=== PATIENT | female | born 1955 | race Caucasian/White ===

== ENCOUNTER 2021-09-28 08:29 | Outpatient (CLI) | payer BC, SELFPAY ==
[2021-09-28 12:27] LABS: Cholesterol* 239 mg/dL (90-199)
[2021-09-28 12:28] LABS: HDL Cholesterol* 38 mg/dL (>=50); LDL Cholesterol Calculated 158 mg/dL (<100); Triglycerides* 213 mg/dL (40-149)
== END 2021-09-28 08:30 | disposition home or self-care (01) ==
PROVIDERS: PCP Family Medicine; Visit Provider Nurse Practitioner Family
DX: E78.5 Hyperlipidemia, unspecified (principal); R79.89 Other specified abnormal findings of blood chemistry
CPT/HCPCS: 80061; 82728

== ENCOUNTER 2022-01-08 08:56 | Outpatient (CLI) | payer BC, SELFPAY ==
--- NOTE | 2022-01-08 09:15 | CRLHL7_ITS ---
For Patients: As a result of the Cures Act, medical imaging exams and procedure reports are released immediately into your electronic medical record. You may view this report before your referring provider. If you have questions, please contact your health care provider. BILATERAL SCREENING MAMMOGRAM WITH COMPUTER-AIDED DETECTION AND TOMOSYNTHESIS TECHNIQUE: CC and MLO views were obtained. These mammographic images have been obtained using full-field digital technique. These mammographic images were interpreted with the benefit of computer-aided detection. Breast Tomosynthesis was used in this interpretation. COMPARISON FILM: 01/05/21, 12/14/19, 12/07/18. FINDINGS: There are scattered areas of fibroglandular density IMPRESSION: There is no radiographic evidence for malignancy. ASSESSMENT: BI-RADS Category 1: Negative RECOMMENDATION: Routine screening mammogram in 1 year. A lay language report of this examination will be provided to the patient. Francis Le M.D. Diagnostic Radiologist [email or web address] COLE/tamar / be/Dictated by: Francis Le MD @ 01/08/2022 10:07:00 AM (Electronically Signed)
== END 2022-01-08 08:57 | disposition home or self-care (01) ==
LOC: MAMMO 08:57
PROVIDERS: PCP Family Medicine; Visit Provider Family Medicine
DX: Z12.31 Encounter for screening mammogram for malignant neoplasm of breast (principal)
CPT/HCPCS: 77063; 77067

== ENCOUNTER 2022-04-17 09:21 | Outpatient (CLI) | payer BC, SELFPAY ==
[2022-04-17 09:54] LABS: Albumin* 4.4 g/dL (3.3-5.0); Chloride* 105 mmol/L (96-114)
[2022-04-17 09:55] LABS: Potassium* 5.4 mmol/L (3.6-5.1); Sodium* 140 mmol/L (135-149)
[2022-04-17 09:57] LABS: Alanine Aminotransferase* 24 U/L (4-35); Alkaline Phosphatase* 127 U/L (40-150); Aspartate Amino Transferase* 29 U/L (12-35); Bilirubin Total* 0.4 mg/dL (0.1-1.5); Blood Urea Nitrogen* 16 mg/dL (7-30); Carbon Dioxide* 31 mmol/L (20-32); Cholesterol* 205 mg/dL (90-199); Creatinine* 0.6 mg/dL (0.5-1.5); Estimated Glomerular Filt Rate 100 ml/min; Glucose* 95 mg/dL (60-115); Total Protein* 7.3 g/dL (6.0-8.3)
[2022-04-17 09:58] LABS: Calcium* 10.2 mg/dL (8.4-10.6); HDL Cholesterol* 47 mg/dL (>=50); LDL Cholesterol Calculated 120 mg/dL (<100); Triglycerides* 191 mg/dL (40-149)
[2022-04-17 10:01] LABS: Iron* 81 ug/dL (37-170)
[2022-04-17 10:11] LABS: Percent Iron Saturation 24 % (20-50); Total Iron Binding Capacity 330 ug/dL (265-497)
== END 2022-04-17 09:22 | disposition home or self-care (01) ==
PROVIDERS: PCP Family Medicine; Visit Provider Family Medicine
DX: R79.89 Other specified abnormal findings of blood chemistry (principal); K74.3 Primary biliary cirrhosis; E78.5 Hyperlipidemia, unspecified
CPT/HCPCS: 80053; 80061; 82728; 83540; 83550

== ENCOUNTER 2023-02-12 11:06 | Outpatient (CLI) | payer BC, SELFPAY ==
--- NOTE | 2023-02-12 11:30 | CRLHL7_ITS ---
For Patients: As a result of the Cures Act, medical imaging exams and procedure reports are released immediately into your electronic medical record. You may view this report before your referring provider. If you have questions, please contact your health care provider. BILATERAL SCREENING MAMMOGRAM WITH COMPUTER-AIDED DETECTION AND TOMOSYNTHESIS TECHNIQUE: CC and MLO views were obtained. These mammographic images have been obtained using full-field digital technique. These mammographic images were interpreted with the benefit of computer-aided detection. Breast Tomosynthesis was used in this interpretation. COMPARISON FILM: 01/08/22, 01/05/21, 12/14/19. FINDINGS: There are scattered areas of fibroglandular density IMPRESSION: There is no radiographic evidence for malignancy. ASSESSMENT: BI-RADS Category 2: Benign RECOMMENDATION: Routine screening mammogram in 1 year. A lay language report of this examination will be provided to the patient. Francis Le M.D. Diagnostic Radiologist [email or web address] COLE/rock Transcribed: 6:45 p.mSun wilkerson/Dictated by: Francis Le MD @ 02/12/2023 12:21:00 PM (Electronically Signed)
== END 2023-02-12 11:07 | disposition home or self-care (01) ==
LOC: MAMMO 11:07
PROVIDERS: PCP Family Medicine; Visit Provider Family Medicine
DX: Z12.31 Encounter for screening mammogram for malignant neoplasm of breast (principal)
CPT/HCPCS: 77063; 77067

== ENCOUNTER 2023-08-14 15:18 | Outpatient (CLI) | payer BC, SELFPAY | END 2023-08-14 15:19 | disposition home or self-care (01) | PROVIDERS: PCP Family Medicine; Visit Provider Family Medicine | DX: E78.5 Hyperlipidemia, unspecified (principal); K74.3 Primary biliary cirrhosis; R53.83 Other fatigue; G43.009 Migraine without aura, not intractable, without status migrainosus | CPT/HCPCS: 80053; 80061; 82306; 82607; 84443 ==

== ENCOUNTER 2023-08-28 13:26 | Outpatient (CLI) | payer BC, SELFPAY ==
--- OUTSIDE RECORDS SUMMARY | 2023-08-28 13:28 | XMS_ITS | Referral Summary ---
Author Organization [facility] Address [address] [place] [address] Care Team Providers Care Critical Care Nurse Name Role Phone Elsewhere, Pcp Primary Care Provider Unavailabl e Source Comments Patient records contain information from all sites at [facility]. For routine questions regarding patient records, call [phone] during business hours, M-F 8:00 AM - 5:00 PM Central Time. Record requests for emergency care only can be directed to [phone] at any time.[facility] Encounters Date Type Department Care Team Description 08/13/2023 Refill Division of Gastroenterology in [place], [place] [address] [place] [phone] Rah Lucero M.D. Med Refill from Last 3 Months Allergies No known active allergies Medications Medication Sig Dispensed Refills Start Date End Date Status docosahexanoic acid/epa (FISH OIL ORAL) Take 1 capsule by mouth daily. 11/24/2013 Active ferrous sulfate 325 mg (65 mg iron) tablet Take 1 tablet by mouth daily. 12/02/2011 Active SUMAtriptan (IMITREX) 100 mg tablet Take 0.5-1 tablets by mouth as needed. 12/02/2011 Active tamoxifen (NOLVADEX) 20 mg tablet Take 1 tablet by mouth daily. 05/14/2016 Active ascorbic acid, vitamin C, (VITAMIN C) 500 mg tablet Take 1 tablet by mouth daily. 12/02/2011 Active cholecalciferol (VITAMIN D3) 10 mcg (400 Unit) tablet Take 1 tablet by mouth daily. 04/21/2012 Active ursodiol (ACTIGALL) 500 mg tablet Take 1 tablet by mouth 2 (two) times a day with meals. 07/31/2016 Active esomeprazole (NexIUM) [address] capsule 03/16/2019 Active KRILL OIL ORAL Take by mouth daily. Active cetirizine (ZyrTEC) 10 mg tablet Take 10 mg by mouth daily. Active Bacillus coagulans (Digestive Advantage Prob Gummy) 250 million cell tablet,chewable Chew daily. Active acyclovir (ZOVIRAX) 400 mg tablet Take 1 tablet (400 mg total) by mouth 5 (five) times a day for 7 days. 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 No 06/25/2022 Within the last year, have y ou been humiliated or emotionally abused in other ways by your partner or ex-partner? No Within the last year, have y ou been kicked, hit, slapped, or otherwise physically hurt by your partner or ex-partner? No 06/25/2022 Within the last year, have y ou been raped or forced to have any kind of sexual activity by your partner or ex-partner? No 06/25/2022 Social Connection and Isolat ion Panel [NHANES] Answer Date Recorded In a typical week, how many times do you talk on the phone with family, friends, or neighbors? More than three times a week 06/25/2022 How often do you get togethe r with friends or relatives? Once a week 06/25/2022 How often do you attend chur ch or rastafari services? More than 4 times per year 06/25/2022 Do you belong to any clubs o r organizations such as hinduism groups, unions, fraternal or athletic groups, or school groups? Yes 06/25/2022 How often do you attend meet ings of the clubs or organizations you belong to? More than 4 times per year 06/25/2022 Are you , , di vorced, , never , or living with a partner? 06/25/2022 AUDIT-C Answer Date Recorded Q1: How often do you have a drink containing alc ohol? Never 06/25/2022 Average Number of Drinks Not on file 023 Frequency of Binge Drinking Not on file 06/08 Overall Financial Resource Strain (CARDIA) Answe r Date Recorded How hard is it for you to pa y for the very basics like food, housing, medical care, and heating? Not hard at all 06/25/2022 [facility] - Occupational Stress Questionnaire Answer Date Recorded Do you feel stress - tense, restless, nervous, or anxious, or unable to sleep at night because your mind is troubled all the time - these days? Not at all 06/25/2022 Exercise Vital Sign Answer Date Recorde d On average, how many days pe r week do you engage in moderate to strenuous exercise (like a brisk walk)? 4 days 06/25/2022 On average, how many minutes do you engage in exercise at this level? 30 min 06/25/2022 Hunger Vital Sign Answer Date Recorded Within the past 12 months, y ou worried that your food would run out before you got the money to buy more. Never true 06/26/19 23 Within the past 12 months, t he food you bought just didn't last and you didn't have money to get more. Never true 06/25/2022 PRAPARE - Transportation Answer Date Re corded In the past 12 months, has l ack of transportation kept you from medical appointments or from getting medications? No 06/08 In the past 12 months, has l ack of transportation kept you from meetings, work, or from getting things needed for daily living? No 06/25/2022 Housing Stability Vital Sign Answer Elver e Recorded In the last 12 months, was t here a time when you were not able to pay the mortgage or rent on time? No 06/25/2022 In the last 12 months, how many places have you lived? 1 06/25/2022 In the last 12 months, was t here a time when you did not have a steady place to sleep or slept in a snf (including now)? No 06/25/2022 Nutrition Answer Date Recorded Nutrition: EVOO Fat Source No 06/25 On average, how many serving s of fruits and vegetables do you eat per day (serving size is equal to 1 cup or approximately the size of a tennis ball)? 2-3 06/25/2022 Dental Answer Date Recorded Dental: Regular Dentist Yes 06/26/19 Employment Answer Date Recorded Employment status Employed and actively working without restrictions 06/25/2022 Education Answer Date Recorded What is the highest level of school you have completed or the highest degree you have received? Associate degree: occupational, technical, or vocational program 05/09/2019 Sex and Gender Information Value Date Recorded Sex Assigned at Female 06/25/2022 9:31 AM CDT Gender Identity Female 11/26/2017 10:47 AM CDT Sexual Orientation Straight 11/26/2017 10 :47 AM CDT Last Filed Vital Signs Vital Sign Reading Time Taken Comments Blood Pressure 126/78 06/26/2022 10:58 AM CDT Pulse 88 06/26/2022 10:58 AM CDT Temperature 36.7 ??C (98.1 ??F) 09/09/2021 1:56 PM CD T Respiratory Rate 16 01/06/2012 5:39 PM CDT Oxygen Saturation 98% 09/09/2021 1:56 PM CDT Inhaled Oxygen Concentration - - Weight 83 kg (182 lb 15.7 oz) 06/26/2022 10:58 A M CDT Height 159.5 cm (5' 2.8) 06/26/2022 10:58 AM CD T Body Mass Index 32.63 06/26/2022 10:58 AM CDT Plan of Treatment Not on file Medical Devices Implanted Type Area Quality Control Microbiology Supervisor Device Identifier Shelf Expiration Date Model / Serial / Lot Conversions - Default Historical Implant Device Implanted:06/04 (Quantity not on file) Knee Implant Right: Knee Description:Body Location - Knee R. Device Status Text - Knee Imp. Knee Implant- 9 Implanted:10/09 (Quantity not on file) Knee Implant Knee Description:Left knee replac ement Procedures Procedure Name Priority Date/Time Associated Diagnosis Comments US ABDOMEN COMPLETE RAD - Routine (most inpatients and all outpatients) 06/26/2022 9:07 AM CDT Cirrhosis Biliary Primary (HCC) GLUCOSE, FASTING, S/P Routine 06/26/2022 8:25 AM CDT Cirrhosis Biliary Primary (HCC) BI BREAST SCREENING BILATERAL WITH TOMOSYNTHESIS RAD - Routine (most inpatients and all outpatients) 11/26/2017 9:34 AM CDT Cancer Breast Ductal In Situ Left COLONOSCOPY Routine 03/11/2012 1:01 PM FISHER QUAHOG from Last 3 Months or Most Recently Relevant to Health Maintenance Results * US Abdomen Complete (06/26/2022 9:07 AM CDT) Anatomical Region Laterality Modality Abdomen, Ultrasound RST LOS, Ultrasound ARZ LOS, Ultrasound FLA LOS N/A Ultrasound 06/26/2022 9:36 AM CDT Impressions 06/26/2022 9:41 AM CDT Liver appears normal by ultrasound. No focal hepatic observations. LI-RADS 1A. Narrative 06/26/2022 9:41 AM CDT EXAM: US ABDOMEN COMPLETE COMPARISON: Outside ultrasound 03/17/2019, ultrasound 06/26/2015, outside CT abdomen/pelvis 03/05/2017. FINDINGS: Liver: Normal. ??No focal hepatic observations. LI-RADS 1A. Gallbladder: Normal. Intrahepatic ducts: Not dilated. Common duct: Not dilated. Pancreas: Normal where seen. Right kidney: Length: 10.8 cm. Normal echogenicity. No hydronephrosis. Left kidney: Length: 11.1 cm. Normal echogenicity. No hydronephrosis. Spleen: Normal. ??Spleen length: 11.2 cm Aorta: Normal caliber. IVC: Normal where seen. Ascites: ??None. Ultrasound LI-RADS score is as follows: Ultrasound Category: US-1: ??Negative (No US evidence of HCC). ??Recommend continued routine surveillance. Visualization Score: A: ??Normal or minimal limitations (limitations, if any, are unlikely to meaningfully affect sensitivity). Ultrasound LI-RADS is a standardized system for imaging technique, interpretation, reporting, and data collection for screening or surveillance ultrasound exams in patients at risk for developing HCC. Ultrasound LI-RADS is supported and endorsed by the [employer]. More information can be found on the following link https://www.acr.org/Clinical-Resources/Zbkyzlipd-aln-Glij-Systems/LI-RADS/LI-RAD S-Ult rasound-v2017 Procedure Note Luis España M.D. - 06/26/2022 EXAM: US ABDOMEN COMPLETE COMPARISON: Outside ultrasound 03/17/2019, ultrasound 06/26/2015, outsideCT abdomen/pelvis 03/05/2017. FINDINGS: Liver: Normal. No focal hepatic observations. LI-RADS 1A. Gallbladder: Normal. Intrahepatic ducts: Not dilated. Common duct: Not dilated. Pancreas: Normal where seen. Right kidney: Length: 10.8 cm. Normal echogenicity. No hydronephrosis. Left kidney: Length: 11.1 cm. Normal echogenicity. No hydronephrosis. Spleen: Normal. Spleen length: 11.2 cm Aorta: Normal caliber. IVC: Normal where seen. Ascites: None. Ultrasound LI-RADS score is as follows: Ultrasound Category: US-1: Negative (No US evidence of HCC). Recommendcontinued routine surveillance. Visualization Score: A: Normal or minimal limitations (limitations, ifany, are unlikely to meaningfully affect sensitivity). Ultrasound LI-RADS is a standardized system for imaging technique,interpretation, reporting, and data collection for screening or surveillance ultrasound exams in patientsat risk for developing HCC. Ultrasound LI-RADS is supported and endorsed by the [employer]. More information can be found on the following link https://www.acr.org/Clinical-Resources/Blrnxuiag-apz-Vezj-Systems/LI-RADS/LI-RAD S-Ult rasound-v2017 IMPRESSION: Liver appears normal by ultrasound. No focal hepatic observations. LI-RADS1A. Rai Drew APRN.N.P. IMG US PRO CEDURES * Glucose, Fasting (06/26/2022 8:25 AM CDT) Glucose, P 95 70 - 100 mg/dL 06/26/2022 9:23 AM CDT DTL Last Intake 9 hr 06/26/2022 9:01 AM CDT DTL Blood (Blood, Venous) 06/26/2022 8:25 AM CDT 06/26/2022 9:01 AM CDT Marco A Schultz APRN C.N.P. LAB BLOOD NON ADD-ON [facility] [place] [address] [place] [address], [facility] [address] [place] [address] * BI Breast Screening Bilateral with Tomosynthesis (11/26/2017 9:34 AM CDT) Anatomical Region Laterality Modality Breast, Breast Imaging RST L OS, Breast Imaging ARZ LOS, Breast Imaging FLA LOS Bilateral Mammography 11/26/2017 10:5 6 AM CDT Impressions 11/26/2017 10:58 AM CDT IMPRESSION: ??Negative. RECOMMENDATION: ??Annual Screening Mammogram The patient mentioned an area of concern in her breast to the technologist at the time of screening mammogram. ??She was given a card advising her to discuss this finding with her referring provider. ASSESSMENT: ??BI-RADS: 1: Negative. Narrative 11/26/2017 10:58 AM CDT EXAM: ??BI BREAST SCREENING BILATERAL WITH TOMOSYNTHESIS Current study was evaluated with a Computer Aided Detection (CAD) system. INDICATION: ??Screening mammogram. COMPARISON: ??Prior exams were available for comparison. DENSITY: ??b. There are scattered areas of fibroglandular density. FINDINGS: ??No findings of malignancy. ??No significant change since prior exam. Procedure Note Su Marcelino M.D. - 11/26/2017 EXAM: BI BREAST SCREENING BILATERAL WITH TOMOSYNTHESIS Current study was evaluated with a Computer Aided Detection (CAD) system. INDICATION: Screening mammogram. COMPARISON: Prior exams were available for comparison. DENSITY: b. There are scattered areas of fibroglandular density. FINDINGS: No findings of malignancy. No significant change since priorexam. IMPRESSION: Negative. RECOMMENDATION: Annual Screening Mammogram The patient mentioned an area of concern in her breast to the technologistat the time of screening mammogram. She was given a card advising her todiscuss this finding with her referring provider. ASSESSMENT: BI-RADS: 1: Negative. Raeann Lance M.D., Ph.D. IMG BI PROCE DURES * Colonoscopy (03/11/2012 1:01 PM FISHER QUAHOG) 03/11/2012 1:01 PM FISHER QUAHOG Raeann Lance M.D., Ph.D. GI PROCEDURE ORDERABLES [facility] [address] from Last 3 Months or Most Recently Relevant to Health Maintenance Care Teams Critical Care Nurse Relationship Specialty Start Date End Date Elsewhere, Pcp PCP - General Internal Medicine 09/09/21
--- OUTSIDE RECORDS SUMMARY | 2023-08-28 13:28 | XMS_ITS | Clinical Summary ---
Author Organization [facility] Address [address] [place] [address] Care Team Providers Care Checker/Stocker Name Role Phone Elsewhere, Pcp Primary Care Provider Unavailabl e Source Comments Patient records contain information from all sites at [facility]. For routine questions regarding patient records, call [phone] during business hours, M-F 8:00 AM - 5:00 PM Central Time. 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 Med Refill from Last 3 Months Immunizations Name Administration Dates Next Due HepA Adult 12/13/2011 HepB Adult 12/13/2011 RZV (SHINGRIX) 11/26/2017(Deferred: Not availab le from leveling machine operator) Tdap 12/13/2011 Social History Tobacco Use Types [...] often do you attend chur ch or baptist services? More than 4 times per year 06/25/2022 Do you belong to any clubs o r organizations such as episcopal groups, unions, fraternal or athletic groups, or [...] and heating? Not hard at all 06/25/2022 [facility] - Occupational Stress [...] place to sleep or slept in a custodial (including now)? No 06/25/2022 Nutrition Answer Date [...] 06/26/2022 10:58 AM CDT Plan of Treatment Health Maintenance Due Date Last Done Comments Bone Density Scan (Osteoporo sis Screen) 1957 CT Colonography 1957 Cologuard 1957 FIT 1955 Hepatitis C Screening 1955 Mammogram 11/26/2018 11/26/2017, 05/2016 (Performed elsewhere), 06/08/2014 (Performed elsewhere), Additional history exists Colonoscopy 03/11/2022 03/11/2012 Colorectal Cancer Screening 03/11/2022 COVID-19 Vaccine (2022-04 4 season) 2022 07/01/2022, 01/14/2022, 06/19/2021, Additional history exists Abdominal Ultrasound 12/26/2022 06/26/2022, 06/26/2015, 12/02/2011 Depression Screening (Annual PHQ-2) 03/10/2023 Fall Risk Screen (Annual) 03/10/2023 Fasting Glucose for Diabetes Screening 06/26/2025 06/26/2022, 06/26/2015, 06/23/2012, Additional history exists DTaP,Tdap,and Td Vaccines (3 - Td or Tdap) 11/06/2031 11/05/2021, 12/13/2011, 02/23/2004, Additional history exists Hepatitis A Vaccines Completed 09/19/2015, 12/13/19 Cervical Cancer Screening Discontinued 2017, 05/10/2013 (Performed elsewhere), 06/18/2011 (Performed elsewhere) Hepatitis B Vaccines Completed 10/14/2018, 09/19/2015, 12/13/2011 Zoster Vaccines Completed 11/18/2018, 07/09, 11/26/2017 Pneumococcal vaccine (65+ years) Completed 01/15/20, 08/04/2018 Influenza Vaccine Completed 11/30/2022, , 12/14/2020, Additional history exists Medical Devices Implanted Type Area Human Services Worker Device Identifier Shelf Expiration Date Model / [...] Situ Left COLONOSCOPY Routine 03/11/2012 1:01 PM AIRPORT GUIDE from Last 3 Months or Most Recently [...] LI-RADS is supported and endorsed by the [employer]. More information can be found on the following link https://www.acr.org/Clinical-Resources/Yeqxdkczl-lxr-Eqcc-Systems/LI-RADS/LI-RAD S-Ult rasound-v2017 Procedure Note uLis España M.D. - 06/26/2022 EXAM: US ABDOMEN [...] LI-RADS is supported and endorsed by the [employer] [employer]. More information can be found on the following link https://www.acr.org/Clinical-Resources/Nvfpgnjcm-rho-Lcpr-Systems/LI-RADS/LI-RAD S-Ult rasound-v2017 IMPRESSION: Liver appears normal by ultrasound. No focal hepatic observations. LI-RADS1A. Armando Drew APRNN.P. [facility] US PRO CEDURES * Glucose, Fasting (06/26/2022 8:25 AM CDT) Glucose, P 95 70 - 100 mg/dL 06/26/2022 9:23 AM CDT DTL Last Intake 9 hr 06/26/2022 9:01 AM CDT DTL Blood (Blood, Venous) 06/26/2022 8:25 AM CDT 06/26/2022 9:01 AM CDT Armando Drew APRNN.P. LAB BLOOD NON ADD-ON [facility] [address] [place] [address], [facility] [address] [place] [address] * BI Breast Screening Bilateral with Tomosynthesis [...] Raeann Lance M.D., Ph.D. IMG BI PROCE SUSHILA * Colonoscopy (03/11/2012 1:01 PM AIRPORT GUIDE) 03/11/2012 1:01 PM AIRPORT GUIDE Raeann Lance M.D., Ph.D. GI PROCEDURE ORDERABLES [facility] [address] from Last 3 Months or Most Recently Relevant to Health Maintenance Care Teams Checker/Stocker Relationship Specialty Start Date End Date Elsewhere, Pcp PCP - General Internal Medicine 09/09/21
--- OUTSIDE RECORDS SUMMARY | 2023-08-28 13:29 | XMS_ITS | Clinical Summary ---
Author Organization [facility] Address [place], [place] [address] Care Team Providers Care Demand Inspector Name Role Phone Zaina Leroy MD Primary Care Provider + Allergies Active Allergy Reactions Criticality Noted Date Comments Unlisted Allergen (Include D etail In Comments) *Unknown 09/06/2015 Medications Medication Sig Dispensed Refills Start Date End Date Status ursodiol (VALERIE) 250 mg tablet Take 1 tablet by mouth 2 times daily with meals. 0 09/27/2015 Active tamoxifen (NOLVADEX) 20 mg tablet Take 1 tablet by mouth once daily. 0 09/27/2015 Active Social History Tobacco Use Types Packs/Day Years Used Date Smoking Tobacco: Never Tobacco Cessation:Counseling Given: Yes Sex and Gender Information Value Date Recorded Sex Assigned at Not on file Gender Identity Not on file Sexual Orientation Not on file Obstetrics History Last Filed Vital Signs Vital Sign Reading Time Taken Comments Blood Pressure 136/88 04/24/2016 4:01 PM INSPECTOR EXPERIMENTAL ASSEMBLY Pulse 78 04/24/2016 4:01 PM INSPECTOR EXPERIMENTAL ASSEMBLY Temperature 36.7 ??C (98 ??F) 12/05/2015 4:21 PM CDT Respiratory Rate - - Oxygen Saturation 99% 04/24/2016 4:01 PM INSPECTOR EXPERIMENTAL ASSEMBLY Inhaled Oxygen Concentration - - Weight 86.5 kg (190 lb 12.8 oz) 04/24/2016 4:01 PM INSPECTOR EXPERIMENTAL ASSEMBLY Height - - Body Mass Index - - Plan of Treatment Health Maintenance Due Date Last Done Comments Tdap 1968 Depression screening for age 12+ 1969 BMI (ht and wt on same day) for age 18+ 07/10/1975 Hepatitis C screening for age 18-79 07/10/1975 Tetanus booster 1977 Colonoscopy through age 75 2002 Lipids for age 45-75 2002 Zoster (shingles) series for age 50+ (1 of 2) 07/10/19 08 Mammogram for age 45-75 06/18/2015 06/17/2014 DEXA/DXA scan for age 65+ 2022 Pneumococcal series for age 65+ (1 of 1 - PCV) 023 COVID-19 vaccine series ( - 2022-24 season) 3 Influenza for age 65+ 11/09/2023 Procedures Procedure Name Priority Date/Time Associated Diagnosis Comments SCAN-MAMMOGRAPHY REPORT 06/17/2014 12:00 AM CDT from Last 3 Months or Most Recently Relevant to Health Maintenance Results * SCAN-MAMMOGRAPHY REPORT (06/17/2014 12:00 AM CDT) Anatomical Region Laterality Modality Other Narrative 06/21/2014 9:34 AM CDT Procedure Note Scanner - 06/17/2014 12:00 AM CDT Scanner OTHER from Last 3 Months or Most Recently Relevant to Health Maintenance Care Teams Demand Inspector Relationship Specialty Start Date End Date Zaina Leroy MD [address] [place] [address] PCP - General Family Practice 08/29/15
--- OUTSIDE RECORDS SUMMARY | 2023-08-28 13:29 | XMS_ITS | Encounter Summary ---
Author Organization [facility] Address [address] [place] [id number] Care Team Providers Care Superintendent Meters Name Role Phone Elsewhere, Pcp Primary Care Provider Unavailabl e Reason for Visit * Reason Comments Med Refill Encounter Details Date Type Department Care Team ([facility] st Contact Info) Description 05/17/2023 Refill Division of Gastroenterology in [place], [place] [address] [place] [phone] Marco A Schultz, TRICK RODEO RIDER, C.N.P. [address] [place] [phone] Med Refill Social History Tobacco Use Types Packs/Day Years [...] often do you attend chur ch or mandaen services? More than 4 times per year 06/25/2022 Do you belong to any clubs o r organizations such as anabaptism groups, unions, fraternal or athletic groups, or [...] and heating? Not hard at all 06/25/2022 [facility] - [...] place to sleep or slept in a jail (including now)? No 06/25/2022 Nutrition Answer Date [...] Orientation Straight 11/26/2017 10 :47 AM CDT documented as of this encounter Plan of Treatment Not on file documented as of this encounter Visit Diagnoses Diagnosis Cirrhosis Biliary Primary (HCC)- Primary documented in this encounter Additional Health Concerns Assessment Noted Time PHQ-9 Depression Total Score: 0 02/13/20 12 9:02 AM RESEARCH DEVELOPMENT DIRECTOR documented as of this encounter Care Teams Superintendent Meters Relationship Specialty Start Date End Date Elsewhere, Pcp PCP - General Internal Medicine 09/09/21 documented as of this encounter
--- OUTSIDE RECORDS SUMMARY | 2023-08-28 13:29 | XMS_ITS ---
Author Organization [facility] Address [address] [place] [id number] Care Team Providers Care Plant Tech Name Role Phone Unavailable Unavailable Unavailable Surgery Details Not on file Complications Check Surgery Details section. Procedure Estimated Blood Loss Check Surgery Details section. Procedure Findings Check Surgery Details section. Procedure Specimens Taken Check Surgery Details section.
--- OUTSIDE RECORDS SUMMARY | 2023-08-28 13:29 | XMS_ITS | Encounter Summary ---
Author Organization [facility] Address [address] [place] [address] Care Team Providers Care Corporate Development Analyst Name Role Phone Elsewhere, Pcp Primary Care Provider Unavailabl e Reason for Visit * Reason Comments Med Refill Encounter Details Date Type Department Care Team ([facility] st Contact Info) Description 08/13/2023 Refill Division of Gastroenterology in [place], [place] [address] [place] [phone] Rah Lucero M.D. [address] [place] [phone] Med Refill Social History Tobacco Use Types [...] often do you attend chur ch or buddhist services? More than 4 times per year 06/25/2022 Do you belong to any clubs o r organizations such as sikh groups, unions, fraternal or athletic groups, or [...] and heating? Not hard at all 06/25/2022 [facility] - Occupational [...] place to sleep or slept in a half-way (including now)? No 06/25/2022 Nutrition Answer Date [...] encounter Visit Diagnoses Diagnosis Cirrhosis Biliary Primary (HCC) documented in this encounter Additional Health Concerns Assessment Noted Time PHQ-9 Depression Total Score: 0 02/13/20 12 9:02 AM EDUCATION TRAINER documented as of this encounter Care Teams Corporate Development Analyst Relationship Specialty Start Date End Date Elsewhere, Pcp PCP - General Internal Medicine 09/09/21 documented as of this encounter
--- NOTE | 2023-08-28 13:30 | CRLHL7_ITS ---
For Patients: As a result of the Century Cures Act, medical imaging exams and procedure reports are released immediately into your electronic medical record. You may view this report before your referring provider. If you have questions, please contact your health care provider. DXA BONE MINERAL DENSITY STUDY Reason for exam: Asymptomatic menopausal state. Current height (in): 62. Weight (lb): 180. Menopause age: 52. Ethnicity: White. 1. Have you had a previous hip or vertebral fracture? No. 2. Have you had any fractures during your adult life which did not result from significant trauma (e.g., auto accident)? No. 3. Did either of your parents have a hip fracture? No. 4. Do you smoke? No. 5. Have you ever taken Glucocorticoids? No. 6. Do you have rheumatoid arthritis? No. 7. Do you have secondary osteoporosis? No. 8. Do you drink 3 or more alcoholic drinks per day? No. 9. Are you being treated for osteoporosis? No. 10. Have you ever taken any of the following medications: Actonel, Evista, Fosamax, Miacalcin, Reclast, Boniva, Forteo, HRT (i.e. estrogen/hormone therapy), Protelos, Prolia, Vitamin D, Calcium, other ??? please specify. ANSWER: Yes, vitamin D. 11. Do you have any of the following medical conditions: Anorexia or bulimia, asthma or emphysema, end stage renal disease, hyperparathyroidism, any seizure disorders, cancer, inflammatory bowel diseases, hysterectomy, other ??? please specify. ANSWER: Yes, cancer. 12. What was your maximum height (inches)? 62. 13. Do you perform weight bearing exercise regularly? Yes. 14. Do you regularly consume dairy products? Yes. 15. Do you drink caffeinated beverages? Yes. 16. At what age did your period start? 17. 17. Are you premenopausal? No. 18. How many full term pregnancies have you had? 1. 19. Have you ever missed your period for more than 6 months in a row (not including or menopause)? No. TECHNIQUE: Bone mineral density study was performed using the [employer]. FINDINGS: The results of the study expressed as bone mineral density (BMD) are as follows: Lumbar spine L1 to L4: BMD: 0.932 g/cm2. T-score: -1.0. Z-score: 0.8. Neck Left: BMD: 0.766 g/cm2. T-score: -0.8. Z-score: 0.8. Right: BMD: 0.817 g/cm2. T-score: -0.3. Z-score: 1.3. Total Left: BMD: 0.921 g/cm2. T-score: -0.2. Z-score: 1.1. Right: BMD: 0.949 g/cm2. T-score: 0.1. Z-score: 1.3. IMPRESSION: Normal bone density. *Comparison exams done prior to 08/2019 were performed on different unit, [employer]. Francis Le M.D. Diagnostic Radiologist [email or web address] SP/Dictated by: Francis Le MD @ 08/28/2023 3:40:00 PM (Electronically Signed)
== END 2023-08-28 13:27 | disposition home or self-care (01) ==
LOC: RAD 13:26
PROVIDERS: PCP Family Medicine; Visit Provider Family Medicine
DX: Z78.0 Asymptomatic menopausal state (principal)
CPT/HCPCS: 77080

== ENCOUNTER 2023-12-15 07:37 | Outpatient (CLI) | payer BC, SELFPAY ==
--- OUTSIDE RECORDS SUMMARY | 2023-12-15 07:40 | XMS_ITS | Clinical Summary ---
Author Organization [facility] Address [place], [place] [address] Care Team Providers Care Electroplater Name Role Phone Zaina Leroy MD Primary [...] Comments Blood Pressure 136/88 04/24/2016 4:01 PM DIRECTOR DANCE Pulse 78 04/24/2016 4:01 PM DIRECTOR DANCE Temperature 36.7 ??C (98 ??F) 12/05/2015 4:21 PM CDT Respiratory Rate - - Oxygen Saturation 99% 04/24/2016 4:01 PM DIRECTOR DANCE Inhaled Oxygen Concentration - - Weight 86.5 kg (190 lb 12.8 oz) 04/24/2016 4:01 PM DIRECTOR DANCE Height - - Body Mass Index - [...] 1 - PCV) 023 COVID-19 vaccine series (2023-25 season) 4 Influenza for age 65+ 11/09/2023 Procedures Procedure [...] Recently Relevant to Health Maintenance Care Teams Electroplater Relationship Specialty Start Date End Date Zaina Leroy MD [address] [place] [address] PCP - General Family Practice 08/29/15
--- NOTE | 2023-12-15 07:45 | CRLHL7_ITS ---
For Patients: As a result of the Cures Act, medical imaging exams and procedure reports are released immediately into your electronic medical record. You may view this report before your referring provider. If you have questions, please contact your health care provider. DIGITAL DIAGNOSTIC BILATERAL MAMMOGRAM USING TOMOSYNTHESIS AND COMPUTER-AIDED DETECTION LEFT BREAST ULTRASOUND CLINICAL HISTORY: LEFT breast lump. COMPARISON: 02/12/2023, 01/08/2022, 01/05/2021. TECHNIQUE: Digital BILATERAL mammogram in four projections with computer-aided detection. Tomosynthesis was used in this interpretation. Real-time ultrasound imaging of LEFT breast with imaging documentation. BREAST COMPOSITION: There are scattered areas of fibroglandular density. FINDINGS: 3D CC/MLO BILATERAL mammogram images submitted. No suspicious masses or architectural distortion. No suspicious calcifications or adenopathy. Targeted LEFT breast ultrasound performed at 1 o`clock 20 cm from the nipple in the LEFT axillary tail. Normal tissue is present. No fluid collection or mass. No adenopathy. IMPRESSION: No evidence of malignancy. No suspicious findings. RECOMMENDATIONS: Annual BILATERAL screening mammography. Results and recommendations discussed with the patient. BI-RADS Category 2: Benign A lay language report of this examination will be provided to the patient. Dictated by Francis Le MD @ 12/15/2023 9:15:31 AM j/Dictated by: Francis Le MD @ 12/15/2023 9:15:00 AM (Electronically Signed)
--- NOTE | 2023-12-15 08:15 | CRLHL7_ITS ---
For Patients: As a result of the Century Cures Act, medical imaging exams and procedure reports are released immediately into your electronic medical record. You may view this report before your referring provider. If you have questions, please contact your health care provider. PLEASE SEE BILATERAL DIAGNOSTIC MAMMOGRAM OF SAME DAY FOR COMBINED REPORT. CRL:[email or web address] RD/Dictated by: Francis Le MD @ 12/15/2023 9:15:00 AM (Electronically Signed)
== END 2023-12-15 07:38 | disposition home or self-care (01) ==
LOC: MAMMO 07:38
PROVIDERS: PCP Family Medicine; Visit Provider Family Medicine
DX: N63.20 Unspecified lump in the left breast, unspecified quadrant (principal)
CPT/HCPCS: 76642; 77066; 80061; G0279

== ENCOUNTER 2023-12-15 08:30 | Outpatient (CLI) | payer BC, SELFPAY ==
--- OUTSIDE RECORDS SUMMARY | 2023-12-16 19:27 | XMS_ITS | Clinical Summary ---
Author Organization [facility] Address [place], [place] [address] Care Team Providers Care Bottling Line Attendant Name Role Phone Zaina Leroy MD Primary [...] Comments Blood Pressure 136/88 04/24/2016 4:01 PM PRIVACY SPECIALIST Pulse 78 04/24/2016 4:01 PM PRIVACY SPECIALIST Temperature 36.7 ??C (98 ??F) 12/05/2015 4:21 PM CDT Respiratory Rate - - Oxygen Saturation 99% 04/24/2016 4:01 PM PRIVACY SPECIALIST Inhaled Oxygen Concentration - - Weight 86.5 kg (190 lb 12.8 oz) 04/24/2016 4:01 PM PRIVACY SPECIALIST Height - - Body Mass Index - [...] Recently Relevant to Health Maintenance Care Teams Bottling Line Attendant Relationship Specialty Start Date End Date Zaina Leroy MD [address] [place] [address] PCP - General Family Practice 08/29/15
--- OUTSIDE RECORDS SUMMARY | 2023-12-16 19:27 | XMS_ITS | Continuity of Care Document ---
Author Organization [facility] Address [address] [address] [place] [address] Phone Care Team Providers Care Immunologist Name Role Phone Devendra Bridges MD Unavailable Unavailable Advance Directives Directive Yes / No Effective Date File Name No Information Encounters Encounter Description Practice Location Reason(s) For Visit Diagnoses Date Provider Providers Copied on Encounter [facility], [address] [address], [place], [place], [id number], [place] tel:[phone] [facility] No Information Cyrus Ramsay. [address] [facility], [place], [place], [id number], [place]. tel:[phone] Referring Provider: Listed Not. Family History Family Member Type Diagnosis Age At Onset No Information Payers Payer name Insurance type Covered democrat ID Kaitlin christie(s) [facility] [id number] Social History Type Description Quantity Date Captured Comments Sex Female Smoking Status No Information Chief Complaint And Reason For Visit No Information Reason For Referral Reason For Referral No Information History Of Present Illness Encounter Date Complaint History Of Prese nt Illness No Information Functional Status Date Functional Assessmen t No Information Instructions Date Instruction Additional Infor mation No Information Assessments Type Assessment Date No Information Patient Care Teams Name Effective Dates (start - stop) Status Members No Information
== END 2023-12-15 08:31 | disposition home or self-care (01) ==
LOC: NFLDREF 12-16 19:11
PROVIDERS: PCP Family Medicine; Referring Provider Family Medicine; Visit Provider Family Medicine
DX: E78.5 Hyperlipidemia, unspecified (principal)
CPT/HCPCS: 80061

== ENCOUNTER 2024-08-30 07:40 | Outpatient (CLI) | payer MEDICARE, BC, SELFPAY | END 2024-08-30 07:41 | disposition home or self-care (01) | LOC: NFLDREF 16:01 | PROVIDERS: PCP Family Medicine; Referring Provider Family Medicine; Visit Provider Family Medicine | DX: E78.5 Hyperlipidemia, unspecified (principal); K74.3 Primary biliary cirrhosis; R53.83 Other fatigue; R79.89 Other specified abnormal findings of blood chemistry; E66.9 Obesity, unspecified; M18.11 Unilateral primary osteoarthritis of first carpometacarpal joint, right hand | CPT/HCPCS: 80053; 80061; 82306; 82607; 84439; 84443 ==

== ENCOUNTER 2024-12-29 07:32 | Outpatient (CLI) | payer MEDICARE, BC, SELFPAY ==
--- NOTE | 2024-12-29 07:45 | CRLHL7_ITS ---
For Patients: As a result of the Cures Act, medical imaging exams and procedure reports are released immediately into your electronic medical record. You may view this report before your referring provider. If you have questions, please contact your health care provider. DIGITAL DIAGNOSTIC BILATERAL MAMMOGRAM USING TOMOSYNTHESIS AND COMPUTER-AIDED DETECTION RIGHT BREAST ULTRASOUND CLINICAL HISTORY: RIGHT breast lump. COMPARISON: 12/15/2023, 02/12/2023, 01/08/2022. TECHNIQUE: Digital BILATERAL mammogram in four projections with computer-aided detection. Tomosynthesis was used in this interpretation. Real-time ultrasound imaging of RIGHT breast with imaging documentation. BREAST COMPOSITION: There are scattered areas of fibroglandular density. FINDINGS: 3D CC/MLO BILATERAL mammogram images submitted. Post treatment changes LEFT breast. Benign calcifications noted bilaterally. No adenopathy or architectural distortion. Targeted RIGHT breast ultrasound performed in the area of concern at 8 o`clock 12 cm from the nipple. In this location there is a hypoechoic structure within the epidermis layer which measures 8 x 3 x 9 mm. No internal vascularity. IMPRESSION: Epidermal cyst measures 9 mm, likely mildly inflamed. No evidence of malignancy. RECOMMENDATIONS: Routine screening mammography. Clinical follow-up. A lay language report of this examination will be provided to the patient. BI-RADS Category 2: Benign Dictated by Francis Le MD @ 12/29/2024 9:44:07 AM jj/Dictated by: Francis Le MD @ 12/29/2024 9:44:00 AM (Electronically Signed)
--- NOTE | 2024-12-29 08:15 | CRLHL7_ITS ---
For Patients: As a result of the Cures Act, medical imaging exams and procedure reports are released immediately into your electronic medical record. You may view this report before your referring provider. If you have questions, please contact your health care provider. SEE DIGITAL DIAGNOSTIC BILATERAL MAMMOGRAM PERFORMED SAME DAY CRL:[email or web address] wilkerson/Dictated by: Francis Le MD @ 12/29/2024 9:42:00 AM (Electronically Signed)
== END 2024-12-29 07:33 | disposition home or self-care (01) ==
LOC: MAMMO 07:32
PROVIDERS: PCP Family Medicine; Visit Provider Family Medicine
DX: N63.10 Unspecified lump in the right breast, unspecified quadrant (principal); N60.01 Solitary cyst of right breast; N64.59 Other signs and symptoms in breast; R92.8 Other abnormal and inconclusive findings on diagnostic imaging of breast
CPT/HCPCS: 76642; 77066; G0279

== ENCOUNTER 2025-02-18 07:55 | Outpatient (CLI) | payer MEDICARE, BC, SELFPAY | END 2025-02-18 07:56 | disposition home or self-care (01) | LOC: NFLDREF 02-23 10:28 | PROVIDERS: PCP Family Medicine; Referring Provider Family Medicine; Visit Provider Family Medicine | DX: E78.5 Hyperlipidemia, unspecified (principal); R79.89 Other specified abnormal findings of blood chemistry | CPT/HCPCS: 80053; 80061; 84443 ==